=== PATIENT | female | born 1955 | race Caucasian/White ===

== ENCOUNTER 2020-07-19 14:09 | Emergency (ER) | payer OTHER ==
--- NOTE | 2020-07-19 14:54 | RAD ---
Left knee:4 views INDICATIONS:Pain and swelling COMPARISON:None FINDINGS: Joint spaces are maintained. Mild to moderate marginal osteophytes. Spurring from the patella. No mitch nt effusion. No fracture. No soft tissue abnormality. IMPRESSION: [id number] degenerative changes
== END 2020-07-19 15:20 | disposition home or self-care (01) ==
LOC: MADERS 14:09
DX: S80.02XA Contusion of left knee, initial encounter (principal); I10 Essential (primary) hypertension; Z79.82 Long term (current) use of aspirin; Z79.899 Other long term (current) drug therapy; W19.XXXA Unspecified fall, initial encounter